=== PATIENT | female | born 1930 | race Hispanic/Latino ===

== ENCOUNTER 2018-10-24 19:36 | Inpatient (IN) | payer MEDICARE ==
--- NOTE | 2018-10-24 20:42 | CT ---
EXAM: CT brain without contrast HISTORY: Near syncope in [facility] [place] parking lot; altered mental status COMPARISON: None TECHNIQUE: Multiple contiguous axial images were obtained and a CT of the brain without contrast. FINDINGS: There are scattered hypodensities in the subcortical and periventricular white matter consi stent with small vessel ischemic disease. There is no evidence of hydrocephalus, intracranial hemorrhage, or extra-axial fluid collection. The calvarium and overlying soft tissues are unremarkable. There is opacification of the left maxilla ry sinus. The other visualized paranasal sinuses and mastoid air cells are well aerated. IMPRESSION: No evidence of acute intracranial abnormality
--- NOTE | 2018-10-24 20:56 | RAD ---
EXAM: Single view of the chest HISTORY: Altered mental status COMPARISON: None FINDINGS: Single view of the chest shows a normal sized cardiomediastinal silhouette. A pacemaker is seen with its leads in the right atrium and ventricle. Calcifications project over the heart shadow. There is no evidence of consolidation, mass, or pleural effusion. Degenerative changes are se en in the spine. IMPRESSION: No evidence of acute cardiopulmonary disease
[2018-10-24 21:07] LABS: #Eosinphils 0.1 thou/uL (0.0-0.7); #Lymphocytes 0.8 thou/uL (1.20-3.40); #Monocytes 0.4 thou/uL (0.11-0.59); #Neutrophils 5.2 thou/uL (1.40-6.50); %Basophils 0.1 % (0.0-1.0); %Eosinophils 0.8 % (0.0-10.0); %Monocytes 6.8 % (0.0-10.0); %Neutrophils 79.4 % (42.0-75.0); Hemoglobin 11.9 g/dL (12.0-16.0); Mean Corpuscular HGB CONC 34.6 g/dL (32.0-36.0); Mean Corpuscular Hemoglobin 30.3 pg (27.0-31.0); Mean Corpuscular Volume 87.6 fL (78.0-98.0); Mean Platelet Volume 10.2 fL (7.4-10.4); Platelet Count 193 thou/uL (130-400); RBC Distribution Width 12.5 % (11.5-14.5); Red Blood Cell (RBC) Count 3.93 mill/uL (4.20-5.40); White Blood Cell (WBC) Count 6.5 thou/uL (4.8-10.8)
[2018-10-24 21:37] LABS: ALT (SGPT) 10 U/L (8-55); AST (SGOT) 22 U/L (5-34); Acetaminophen Less than 6.0 mcg/mL (10.0-30.0); Albumin 4.3 g/dL (3.4-4.8); Alcohol Less than 10 mg/dL (Less than 10); Alkaline Phosphatase 63 U/L (40-150); Anion Gap 19 mmol/L (10-20); BUN (Urea Nitrogen) 32 mg/dL (9.8-20.1); Bilirubin, Total 0.5 mg/dL (0.2-1.2); Calc. Creatinine Clearance 0 mL/min (70-130); Calcium 10.5 mg/dL (7.8-10.44); Carbon Dioxide 22 mmol/L (23-31); Chloride 102 mmol/L (98-107); Estimated GFR-MDRD 26; Globulin 2.9 g/dL (2.4-3.5); Glucose 153 mg/dL (83-110); Potassium 4.4 mmol/L (3.5-5.1); Protein, Total 7.2 g/dL (6.0-8.3); Salicylate Less than 8.0 mg/dL (15.0-30.0); Sodium 139 mmol/L (136-145)
[2018-10-24 22:34] LABS: Bilirubin Small (Negative); Blood, Urine Small (Negative); Clarity TURBID (Clear); Glucose, Urine (Dipstick) Negative (Negative); Leukocyte Large (Negative); Nitrite Negative (Negative); Protein, Urine (Dipstick) 30 mg/dL (Neg-Trace)
[2018-10-24 22:36] LABS: Bacteria/HPF 4+ HPF (None Seen); Pathc Cast-AUWi Flag 2.72 (0-2.49); RBC/HPF 0-3 HPF (0-3); Squamous Epithelial None Seen HPF (0-3); Yeast-AUWi Flag 22.5 (0-25.0)
[2018-10-24 22:46] LABS: Amphetamine Not Detected (NotDetected); Cocaine Metabolite Screen Not Detected (NotDetected); Medtox Reader # READER 1; Methamphetamine Not Detected (NotDetected); Opiate Screen Not Detected (NotDetected); Phencyclidine (PCP) Not Detected (NotDetected); THC/Cannabinoid Screen Not Detected (NotDetected)
[2018-10-24 22:47] LABS: Barbiturates Screen Not Detected (NotDetected); Benzodiazepine Screen Not Detected (NotDetected); Medtox Control Line Valid? VALID (VALID); Methadone Not Detected (NotDetected); Oxycodone Screen Not Detected (NotDetected); Tricyclic Screen Not Detected (NotDetected)
[2018-10-25 01:24] LABS: Lactic Acid 2.5 mmol/L (0.5-2.2)
[2018-10-25] MEDS ORDERED: Sodium Chloride 0.9% 1,000 ML IV SCH ×2 (01:32→08:45)
[2018-10-25] MEDS ORDERED: Ondansetron ODT 4 MG TAB SL PRN (01:32)
[2018-10-25] MEDS ORDERED: Ondansetron PF 4 MG/2 ML Vial IVP PRN ×2 (01:32→08:43)
[2018-10-25] MEDS ORDERED: Acetaminophen 325 MG TAB PO PRN ×2 (01:32→08:43)
[2018-10-25 02:02] VITALS: BMI 23.1
[2018-10-25] MEDS ORDERED: Calcium Carbonate 500 MG ChewTAB PO PRN ×2 (08:43→09:20)
[2018-10-25] MEDS ORDERED: Bisacodyl 10 MG SUPP PR PRN (08:43)
[2018-10-25] MEDS ORDERED: Ondansetron ODT 4 MG TAB PO PRN (08:43)
[2018-10-25] MEDS ORDERED: hydrALAZINE 20 MG/ML VIAL SLOW IVP PRN (08:48)
[2018-10-25] MEDS ORDERED: cloNIDine 0.1 MG TAB PO PRN (08:48)
[2018-10-25] MEDS ORDERED: Labetalol HCl 100 MG/20 ML VIAL SLOW IVP PRN (08:48)
[2018-10-25] MEDS ORDERED: hydrALAZINE 10 MG TAB PO PRN (08:48)
--- NOTE | 2018-10-25 10:27 | ULT ---
US Renal Bilateral STANDARD: 10/25/2018 8:47 AM CLINICAL HISTORY: Acute kidney injury. STUDY: Renal ultrasound COMPARISON: None. FINDINGS: Right kidney: Echogenicity: Normal. Masses/cysts: 1.3 cm cyst Hydronephrosis: None. Calcifications: None. Length: 7.9 cm Left kidney: Echogenicity: Normal. Masses/cysts: 5.9 cm cyst Hydronephrosis: None. Calcifications: None. Length: 9.1 cm Limited visualization of the urinary bladder is unremarkable. IMPRESSION: Bilateral renal cysts
[2018-10-25] MEDS: cefTRIAXone\\ROCEPHIN 1 GM in Sodium Chloride 0.9% 100 ML IVPB SCH (11:46)
[2018-10-25] MEDS: Simvastatin 5 MG TAB PO SCH (11:47)
[2018-10-25] MEDS: Fluticasone Propionate Nasal Spray 16 gm Bottle NASAL SCH ×2 (11:47→20:49)
[2018-10-25] MEDS: Multivit, Therapeutic 1 TAB PO SCH (11:48)
[2018-10-25] MEDS: Cyanocobalamin (Vitamin B-12) 1,000 MCG TAB PO SCH (11:48)
[2018-10-25] MEDS: Hydroxychloroquine Sulfate 200 MG TAB PO SCH (11:48)
[2018-10-25] MEDS: Senokot S 8.6-50 MG TAB PO SCH ×2 (11:48→20:49)
[2018-10-25] MEDS: Folic Acid 1 MG TAB PO SCH (11:48)
[2018-10-25] MEDS: Sodium Chloride 0.9% 1,000 ML IV SCH ×2 (12:13→17:28)
--- NOTE | 2018-10-25 12:17 | HP ---
PRIMARY CARE: Blanca Roy MD PRIMARY FORKLIFT SUPERVISOR: Harsh Cameron MD CHIEF COMPLAINT: Generalized weakness. HISTORY OF PRESENT ILLNESS: The patient is an 88-year-old female with sick sinus syndrome, status post pacemaker, dementia, hypertension, diabetes mellitus type 2, and hyperlipidemia, presented to the emergency room with above complaints. The patient currently lives at home. Ambulates with the help of a walker. She has underlying dementia. She gets confused at times. She does not have any swallowing deficits. No bladder or bowel incontinence reported. She is able to walk to the bathroom. No recent hospitalization reported. The patient was at the [employer] with her son yesterday. When she came out of the car, she got lightheaded, dizzy, and slumped over. No injuries reported. No syncope reported according to the son. Recently, the patient has not been eating and drinking well. No fever or chills reported. There was no chest pain, shortness of breath, or diaphoresis reported. Not much information is available from the patient due to underlying dementia. In the emergency room, her initial vital signs showed temperature 98.7, respirations of 18, pulse of 78, blood pressure of 87/52. EKG showed paced rhythm. CT scan of the brain was negative for acute findings. Chest x-ray was negative for infiltrate. Lactic acid was 5.1. She received 2 L of IV fluids in the emergency room. Her blood pressure improved to 115/70 after IV fluid. PAST MEDICAL HISTORY: 1. Diabetes mellitus, type 2. 2. Sick sinus syndrome, status post pacemaker. 3. Hypertension. 4. Hyperlipidemia. 5. Degenerative joint disease. 6. Dementia. PAST SURGICAL HISTORY: 1. Bladder surgery. 2. Right hip replacement. 3. Left knee replacement. 4. Pacemaker placement. ALLERGIES: NO KNOWN DRUG ALLERGIES. CURRENT HOME MEDICATIONS: Confirmed with the family; 1. Metformin 500 mg b.i.d. 2. Pravastatin 20 mg daily. 3. Irbesartan/hydrochlorothiazide 300/12.5 daily. 4. Fluticasone nasal spray b.i.d. SOCIAL HISTORY: As discussed above, the son is the DPOA. She has good family support. FAMILY HISTORY: Negative for heart disease. REVIEW OF SYSTEMS: Cannot be reliably obtained from the patient due to current cognitive status. PHYSICAL EXAMINATION: VITAL SIGNS: As discussed above. GENERAL: An 88-year-old female, in no apparent distress. Appears comfortable. Feels better with IV hydration. HEENT: Head, atraumatic and normocephalic. Sclerae anicteric. Dry mucous membranes. No oral lesion. NECK: Supple. No JVD appreciated. No carotid bruit. LUNGS: Clear to auscultation bilaterally. No wheezing, rales, or rhonchi. HEART: S1 and S2 present. Regular rate and rhythm. 2/6 systolic murmur over the mitral area. ABDOMEN: Soft, nontender. Bowel sounds present. No rebound or guarding. No costovertebral angle tenderness. EXTREMITIES: No edema or calf tenderness. NEUROLOGY: Grossly nonfocal. Moves all 4 extremities. PSYCHIATRY: Alert, awake, and oriented x3. SKIN: Warm and dry. LYMPH NODE: No palpable lymph nodes in the neck. PERIPHERAL VASCULAR: Radial pulses palpable bilaterally. MUSCULOSKELETAL: No joint swelling or tenderness. LABORATORY FINDINGS: Creatinine 1.86 with BUN 32, potassium 4.4. WBC 6.5 with 79.4% neutrophils. Urinalysis showed greater than 50 wbc's with 4+ bacteria and hyaline cast. Chest x-ray and EKG by my review as discussed above. IMPRESSION: 1. Generalized weakness, multifactorial. 2. Toxic metabolic encephalopathy secondary to urinary tract infection. 3. Lactic acidosis. 4. Acute kidney injury baseline creatinine, unknown. 5. Chronic anemia. 6. Metabolic acidosis/lactic acidosis. 7. Diabetes mellitus, type 2. 8. Hypertension. 9. Hyperlipidemia. 10. Dementia. PLAN: The patient will be monitored on the medical floor. We will continue IV hydration. We will start her on IV ceftriaxone. Urine cultures have been sent. The family will assist with pacemaker interrogation. Recheck labs in a.m. Check orthostatic vitals. We will hold irbesartan/hydrochlorothiazide as well as metformin. Resume Flonase. Resume pravastatin. PT/OT consult. Home healthcare evaluation. Plan of care was discussed with the patient and the family at the bedside. They stated understanding. The patient will require 2 to 3 days for stabilization. Job ID: [id number]
[2018-10-25] MEDS: Enoxaparin Sodium 30 MG/0.3 ML SYRINGE SC SCH (20:49)
[2018-10-25] MEDS: Amlodipine 5 MG TAB PO SCH (20:49)
[2018-10-26 05:19] LABS: #Eosinphils 0.3 thou/uL (0.0-0.7); #Lymphocytes 1.6 thou/uL (1.20-3.40); #Monocytes 0.5 thou/uL (0.11-0.59); #Neutrophils 2.3 thou/uL (1.40-6.50); %Basophils 0.7 % (0.0-1.0); %Eosinophils 7.1 % (0.0-10.0); %Lymphocytes 33.3 % (21.0-51.0); %Monocytes 10.6 % (0.0-10.0); %Neutrophils 48.2 % (42.0-75.0); Hemoglobin 9.9 g/dL (12.0-16.0); Mean Corpuscular HGB CONC 33.6 g/dL (32.0-36.0); Mean Corpuscular Volume 89.2 fL (78.0-98.0); Platelet Count 161 thou/uL (130-400); RBC Distribution Width 12.6 % (11.5-14.5); Red Blood Cell (RBC) Count 3.31 mill/uL (4.20-5.40); White Blood Cell (WBC) Count 4.8 thou/uL (4.8-10.8)
[2018-10-26 05:41] LABS: ALT (SGPT) 7 U/L (8-55); AST (SGOT) 15 U/L (5-34); Albumin 3.4 g/dL (3.4-4.8); Alkaline Phosphatase 47 U/L (40-150); Anion Gap 10 mmol/L (10-20); BUN (Urea Nitrogen) 20 mg/dL (9.8-20.1); Bilirubin, Total 0.3 mg/dL (0.2-1.2); Calc. Creatinine Clearance 31 mL/min (70-130); Carbon Dioxide 24 mmol/L (23-31); Chloride 110 mmol/L (98-107); Estimated GFR-MDRD 48; Globulin 2.6 g/dL (2.4-3.5); Glucose 95 mg/dL (83-110); Phosphorus 2.8 mg/dL (2.3-4.7); Sodium 140 mmol/L (136-145)
[2018-10-26] MEDS: Amlodipine 5 MG TAB PO SCH ×2 (09:53→20:33)
[2018-10-26] MEDS: Multivit, Therapeutic 1 TAB PO SCH (09:55)
[2018-10-26] MEDS: Cyanocobalamin (Vitamin B-12) 1,000 MCG TAB PO SCH (09:56)
[2018-10-26] MEDS: Hydroxychloroquine Sulfate 200 MG TAB PO SCH (09:56)
[2018-10-26] MEDS: Senokot S 8.6-50 MG TAB PO SCH ×2 (09:56→20:34)
[2018-10-26] MEDS: Simvastatin 5 MG TAB PO SCH (09:57)
[2018-10-26] MEDS: cefTRIAXone\\ROCEPHIN 1 GM in Sodium Chloride 0.9% 100 ML IVPB SCH (09:57)
[2018-10-26] MEDS: Fluticasone Propionate Nasal Spray 16 gm Bottle NASAL SCH ×2 (10:01→20:31)
[2018-10-26] MEDS: Folic Acid 1 MG TAB PO SCH (10:11)
[2018-10-26] MEDS ORDERED: Sodium Chloride 0.9% 1,000 ML IV SCH (11:30)
[2018-10-26] MEDS: Enoxaparin Sodium 30 MG/0.3 ML SYRINGE SC SCH (20:31)
[2018-10-26 20:36] VITALS: BP 113/62
[2018-10-26 20:40] VITALS: TEMP 97.7
[2018-10-26] MEDS ORDERED: Cefdinir 300 MG CAP PO SCH (21:00)
--- NOTE | 2018-10-26 21:39 | PDOC.PN ---
- Subjective Encounter Start Date: 10/26/18 Encounter Start Time: 09:30 Patient seen and examined for Encephalopathy/UTI. Doing well. Sitting on chair. No fever. Tolerating PO well. No new complaints. No overnight events - Objective Resuscitation Status - Order Detail: 10/25/18 08:43 Resuscitation Status Routine Resuscitation Status: FULL: Full Resuscitation MAR Reviewed: Yes Vital Signs & Weight: Vital Signs (12 hours) Temp Pulse Resp BP BP Pulse Ox 10/26/18 20:33 60 113/62 10/26/18 20:00 97.7 F 60 16 113/62 98 10/26/18 09:53 60 115/62 Weight Admit Weight 118 lb 6.992 oz Weight 118 lb 6.992 oz Result Diagrams: 10/26/18 04:49 10/26/18 04:49 Additional Labs: Accuchecks 10/26/18 10/26/18 20:55 04:37 POC Glucose 215 H 90 Radiology Reviewed by me: Yes (CXR - no infiltrate, Renal USG - renal cyst) Phys Exam - Physical Examination Constitutional: NAD Respiratory: no wheezing, no rales, no rhonchi, clear to auscultation bilateral no accessory muscle use Cardiovascular: RRR, no rub no heaves/pulsations Gastrointestinal: soft, non-tender, positive bowel sounds Musculoskeletal: no edema, pulses present Neurological: non-focal, normal sensation, moves all 4 limbs Psychiatric: normal affect, A&O x 3 Skin: no rash Dx/Plan - Plan DVT proph w/SCDs IMPRESSION: 1. Generalized weakness, multifactorial. 2. Toxic metabolic encephalopathy secondary to E coli urinary tract infection. 3. Lactic acidosis. 4. Acute kidney injury. 5. Hypomagnesemia 6. Metabolic acidosis/lactic acidosis. 7. Diabetes mellitus, type 2. 8. Hypertension. 9. Hyperlipidemia. 10. Dementia. 11. Chronic anemia. 12. B/L renal cysts. PLAN: Cont IV Ceftriaxone Await cultures Replace Magnessium Bladder scan ok Cont sliding scale Cont Amlodipine Cont other meds as below Laboratory Tests 10/26/18 04:49 Magnesium 1.0 L Microbiology 10/24/18 22:16 Urine Straight Catheter Urine Culture - Preliminary Escherichia coli Review of Systems - Review of Systems Respiratory: negative: Cough, Dry, Shortness of Breath, Hemoptysis, SOB with Excertion, Pleuritic Pain, Sputum, Wheezing Cardiovascular: negative: chest pain, palpitations, orthopnea, paroxysmal nocturnal dyspnea, edema, light headedness, other Gastrointestinal: negative: Nausea, Vomiting, Abdominal Pain, Diarrhea, Constipation, Melena, Hematochezia, Other - Medications/Allergies Allergies/Adverse Reactions: Allergies Allergy/AdvReac Type Severity Reaction Status Date / Time No Known Allergies Allergy Verified 11/25/12 16:47 Medications: Current Medications Acetaminophen (Tylenol) 650 mg PO Q4H PRN PRN Reason: Headache/Fever/Mild Pain (1-3) Amlodipine Besylate (Norvasc) 2.5 mg PO BID [facility] Last Admin: 10/26/18 20:33 Dose: Not Given Bisacodyl (Dulcolax) 10 mg [place] DAILYPRN PRN PRN Reason: Constipation Calcium Carbonate (Tums) 1,000 mg PO Q4H PRN PRN Reason: Heartburn or Indigestion Cefdinir (Omnicef) 300 mg PO BID [facility] Last Admin: 10/26/18 20:33 Dose: 300 mg Clonidine (Catapres) 0.1 mg PO Q4H PRN PRN Reason: SBP Greater Than 180 Cyanocobalamin (Vitamin B-12) 1,000 mcg PO DAILY [facility] Last Admin: 10/26/18 09:56 Dose: 1,000 mcg Enoxaparin Sodium (Lovenox) 30 mg SC 2100 [facility] Last Admin: 10/26/18 20:31 Dose: 30 mg Fluticasone Propionate (Flonase Nasal [place]) 0 gm NASAL BID [facility] Last Admin: 10/26/18 20:31 Dose: 1 spr Folic Acid (Folvite) 1 mg PO DAILY [facility] Last Admin: 10/26/18 10:11 Dose: 1 mg Hydralazine HCl (Apresoline) 10 mg SLOW IVP Q4H PRN PRN Reason: SBP Greater Than 180 Hydralazine HCl (Apresoline) 10 mg PO Q6H PRN PRN Reason: SBP Greater Than 180 Hydroxychloroquine Sulfate (Plaquenil) 200 mg PO QAM [facility] Last Admin: 10/26/18 09:56 Dose: 200 mg Labetalol HCl (Normodyne) 10 mg SLOW IVP Q4H PRN PRN Reason: Systolic BP > 180 Multivitamins (Theragran) 1 tab PO DAILY [facility] Last Admin: 10/26/18 09:55 Dose: 1 tab Ondansetron HCl (Zofran Odt) 4 mg PO Q6H PRN PRN Reason: Nausea/Vomiting Ondansetron HCl (Zofran) 4 mg IVP Q6H PRN PRN Reason: Nausea/Vomiting Senna/Docusate Sodium (Senokot S) 1 tab PO BID [facility] Last Admin: 10/26/18 20:34 Dose: 1 tab Simvastatin (Zocor) 10 mg PO QAM [facility] Last Admin: 10/26/18 09:57 Dose: 10 mg Sodium Chloride (Flush - Normal Saline) 10 ml IVF PRN PRN PRN Reason: Saline Flush Last Admin: 10/25/18 02:08 Dose: 10 ml
[2018-10-27] MEDS ORDERED: Magnesium Sulfate 4 GM in Sodium Chloride 0.9% 250 ML 250 ML IVPB SCH (07:00)
[2018-10-27] MEDS ORDERED: Magnesium Chloride 64 MG TAB PO SCH (09:00)
[2018-10-27] MEDS: Amlodipine 5 MG TAB PO SCH (09:26)
[2018-10-27] MEDS: Multivit, Therapeutic 1 TAB PO SCH (09:26)
[2018-10-27] MEDS: Senokot S 8.6-50 MG TAB PO SCH (09:27)
[2018-10-27] MEDS: Folic Acid 1 MG TAB PO SCH (09:27)
[2018-10-27] MEDS: Fluticasone Propionate Nasal Spray 16 gm Bottle NASAL SCH (09:27)
[2018-10-27] MEDS: Hydroxychloroquine Sulfate 200 MG TAB PO SCH (09:27)
[2018-10-27] MEDS: Cyanocobalamin (Vitamin B-12) 1,000 MCG TAB PO SCH (09:27)
[2018-10-27] MEDS: Simvastatin 5 MG TAB PO SCH (09:39)
[2018-10-27] MEDS ORDERED: Cefdinir 300 MG CAP PO SCH ×2 (11:15→21:00)
[2018-10-27] MEDS ORDERED: cefTRIAXone\\ROCEPHIN 1 GM in Sodium Chloride 0.9% 100 ML IVPB SCH (12:00)
--- NOTE | 2018-10-27 14:22 | DIS ---
DATE OF ADMISSION: 10/25/2018 DATE OF DISCHARGE: 10/27/2018 DISCHARGE DISPOSITION: Home. FOLLOWUP: 1. Follow up with primary care physician, Dr. Blanca Roy, in 1 week. 2. Basic metabolic profile with magnesium and phosphorus is recommended. 3. Primary care physician advised to arrange and follow. The patient was seen and examined on the day of discharge. Denies any new complaints. No chest pain, shortness of breath, palpitations, fever, or chills reported. Mentation is back to baseline. DISCHARGE MEDICATIONS: 1. Omnicef 300 mg b.i.d. for next 3 to 4 days. 2. Vitamin B12 daily. 3. Folic acid daily. 4. Multivitamin daily. 5. Slow-Magnesium 128 mg twice a day. 6. Florastor 250 mg daily for next 3 weeks. 7. Pravastatin 20 mg q.a.m. 8. Metformin 500 mg b.i.d. 9. Flonase b.i.d. 10. Amlodipine 2.5 mg b.i.d. to be held if systolic blood pressure is below 130. BRIEF HOSPITAL COURSE: The patient is an 88-year-old female with sick-sinus syndrome, status post pacemaker, dementia, hypertension, and diabetes mellitus type 2, presented to the hospital with generalized weakness with altered mentation. Please refer to the history and physical for further details. The patient was admitted to the hospital with a diagnosis of encephalopathy secondary to UTI. Urine culture showed E coli. She was started on ceftriaxone, which has been changed to oral Omnicef. Her postvoid residual was within normal range. She denies any dysuria, hematuria, or urgency on the day of discharge. The patient was also found to have acute kidney injury with creatinine of 1.86 and BUN of 32. Lactic acid on admission was 5.1. For this reason, diuretics and angiotensin receptor blockers have been discontinued. She was started on low- dose amlodipine with good response in her blood pressure. At discharge, her blood pressure is 113/62. The family was advised to hold amlodipine if the blood pressure is below 120 to 130. She is currently on 2.5 mg twice a day. The patient also underwent renal ultrasound, that showed bilateral renal cysts without any hydronephrosis. All of the infectious workup came back negative. The patient was also found to have hypomagnesemia with magnesium of 1.0. Please note that due to lack of IV access, magnesium was replaced by mouth. On the day of discharge, magnesium improved to 1.2. The family agreed with continuation of oral magnesium and repeating labs after 1 week. It was very hard to get IV access in the patient. The patient and the family stated understanding. FINAL DIAGNOSES: 1. Generalized weakness, multifactorial. 2. Toxic metabolic encephalopathy/Sepsis secondary to urinary tract infection. 3. Lactic acidosis secondary to dehydration. 4. Acute kidney injury on chronic kidney disease stage 3. 5. Bilateral renal cysts. 6. Hypomagnesemia, started oral replacement. Not replaced intravenously due to lack of IV access. 7. Metabolic acidosis due to elevated lactate. 8. Diabetes mellitus type 2. Metformin will be resumed. 9. Hypertension. 10. Hyperlipidemia. 11. Dementia. 12. Chronic anemia. 13. Bilateral renal cysts. PLAN: Plan of care was discussed with the patient in detail and she stated understanding. TIME SPENT WITH PATIENT: Total time coordinating the discharge of this patient was 33 minutes. Job ID: [id number] [facility] SYSTEMSushil
--- NOTE | 2018-10-29 02:32 | PQF ---
[employer]airer Helper Crystal Reports Winform Viewer MANPREET DIAS MALIK MD [id number] [id number] CLINICAL DOCUMENTATION CLARIFICATION FORM: POST DISCHARGE Addendum to original discharge summary date: ____ Late entry note date: __ DATE: 10/29/2018 ATTN: Golden Barnhart Please exercise your independent, professional judgment in responding to the clarification form. Clinical indicators are provided on the bottom of this form for your review Can you please specify whether Sepsis is ruled in or ruled out during this encounter? Sepsis [ x] Ruled in diagnosis [ ] Continue to treat [x ] Resolved [ ] Ruled out diagnosis [ ] Cannot rule out diagnosis [ ] Other diagnosis please specify: [ ] Unable to determine In addition, please specify: Present on Admission (POA): [ ] Yes [ ] No [ ] Unable to determine For continuity of documentation, please document condition throughout progress notes and discharge summary. Thank You. CLINICAL INDICATORS ED Provider Report 10/25 pg. 3 "Sepsis urinary soucre" Microbiology 10/25 - "Urine culture: Escherichia coli" H and pg.1- "Lactic Acid 5.1" H and P pg.3 10/25- "Toxic metabolic encephalopathy secondary to urinary tract infection" H and P pg.3 10/25- "lactic acidosis" H and P pg.3 10/25-- "acute kidney injury base line creatinine, unknown" Discharge Summary 10/27 pg.1- "Presented to the hospital with generalized weakness with altered mentation" Discharge Summary 10/27 pg.1- "admitted to the hospital with a diagnosis of encephalopathy secondary to UTI. Urine culture showed E coli." Discharge Summary 10/27 pg.2- "Lactic acidosis secondary to dehydration" RISK FACTORS Urinary tract infection-Discharge Summary 10/27 pg.2 Lactic acidosis - Discharge Summary 10/27 pg.2 Dehydration-Discharge Summary 10/27 pg.2 Toxic metabolic encephalopathy-Discharge Summary 10/27 pg.2 Acute kidney injury-Discharge Summary 10/27 pg.2 TREATMENTS IV Fluids- JUL 17 Ceftriaxone (Rocephin) 1gm IV- JUL 17 Cefdinir (Omnicef) 300mg PO BID_ JUL 17 (This form is maintained as a part of the permanent medical record) 2014 [employer]. All Rights Reserved [email or web address] [not provided] MTDD
== END 2018-10-27 13:21 | disposition home or self-care (01) | DRG 871 ==
LOC: ERS 19:36 → T4-B 10-25 01:02
PROVIDERS: ADMIT Internal Medicine; ATTEND Internal Medicine
DX: A41.51 Sepsis due to Escherichia coli [E. coli] (principal); G92 Toxic encephalopathy; N39.0 Urinary tract infection, site not specified; N17.9 Acute kidney failure, unspecified; E87.2 Acidosis; N28.1 Cyst of kidney, acquired; E83.42 Hypomagnesemia; E86.0 Dehydration; N18.3 Chronic kidney disease, stage 3 (moderate); E11.22 Type 2 diabetes mellitus with diabetic chronic kidney disease; I12.9 Hypertensive chronic kidney disease with stage 1 through stage 4 chronic kidney disease, or unspecified chronic kidney disease; E78.5 Hyperlipidemia, unspecified; F03.90 Unspecified dementia, unspecified severity, without behavioral disturbance, psychotic disturbance, mood disturbance, and anxiety; Z96.652 Presence of left artificial knee joint; I49.5 Sick sinus syndrome; D63.1 Anemia in chronic kidney disease; Z79.84 Long term (current) use of oral hypoglycemic drugs; Z79.899 Other long term (current) drug therapy; Z95.0 Presence of cardiac pacemaker
CPT/HCPCS: 36415; 36416; 70450; 71045; 76770; 80053; 80306; 80307; 81003; 81015; 82550; 83605; 83735; 84100; 84484; 85025; 87077; 87086; 87186; 93005; 96360; 96361; A4353; J0696; J1650; J3475; J3490; J7050

== ENCOUNTER 2019-01-08 10:39 | Emergency (ER) | payer MEDICARE ==
[2019-01-08 11:17] LABS: #Eosinphils 0.3 thou/uL (0.0-0.7); #Lymphocytes 1.8 thou/uL (1.20-3.40); #Monocytes 0.6 thou/uL (0.11-0.59); #Neutrophils 5.5 thou/uL (1.40-6.50); %Basophils 0.6 % (0.0-1.0); %Eosinophils 3.2 % (0.0-10.0); %Lymphocytes 21.7 % (21.0-51.0); %Monocytes 7.3 % (0.0-10.0); %Neutrophils 67.2 % (42.0-75.0); Hemoglobin 11.6 g/dL (12.0-16.0); Mean Corpuscular HGB CONC 33.5 g/dL (32.0-36.0); Mean Corpuscular Volume 89.5 fL (78.0-98.0); Mean Platelet Volume 9.8 fL (7.4-10.4); Platelet Count 186 thou/uL (130-400); RBC Distribution Width 12.7 % (11.5-14.5); Red Blood Cell (RBC) Count 3.85 mill/uL (4.20-5.40); White Blood Cell (WBC) Count 8.2 thou/uL (4.8-10.8)
[2019-01-08 11:26] LABS: Bacteria/HPF 4+ HPF (None Seen); Bilirubin Negative (Negative); Blood, Urine Negative (Negative); Clarity Clear (Clear); Glucose, Urine (Dipstick) Normal (Negative); Leukocyte Negative Leu/uL (Negative); Nitrite 2+ (Negative); Protein, Urine (Dipstick) Negative (Neg-Trace); RBC/HPF 0-3 HPF (0-3); Squamous Epithelial 0-3 HPF (0-3); Urobilinogen Normal mg/dL (Less than 2); WBC/HPF 0-3 HPF (0-3)
[2019-01-08 11:41] LABS: ALT (SGPT) 7 U/L (8-55); AST (SGOT) 22 U/L (5-34); Albumin 4.2 g/dL (3.4-4.8); Alkaline Phosphatase 60 U/L (40-150); Anion Gap 17 mmol/L (10-20); BUN (Urea Nitrogen) 15 mg/dL (9.8-20.1); Bilirubin, Total 0.4 mg/dL (0.2-1.2); Calc. Creatinine Clearance 0 mL/min (70-130); Calcium 9.9 mg/dL (7.8-10.44); Carbon Dioxide 20 mmol/L (23-31); Chloride 106 mmol/L (98-107); Estimated GFR-MDRD 53; Globulin 3.3 g/dL (2.4-3.5); Glucose 89 mg/dL (83-110); Lipase 21 U/L (8-78); Potassium 4.5 mmol/L (3.5-5.1); Protein, Total 7.5 g/dL (6.0-8.3); Sodium 138 mmol/L (136-145)
--- NOTE | 2019-01-08 11:59 | CT ---
CT HEAD WITHOUT CONTRAST: INDICATION: Mental status change. COMPARISON: 10/24/2018. FINDINGS: Cortical atrophy is again noted. Moderate chronic ischemic white matter changes again noted. No catherine dence of mass or hemorrhage. No evidence of acute infarct. No interval change noted. IMPRESSION: Chronic changes as described. No acute interval change. POS: HARRIS
[2019-01-08] MEDS ORDERED: cefTRIAXone\\ROCEPHIN 1 GM VIAL ONE (12:21)
== END 2019-01-08 12:53 | disposition home or self-care (01) ==
LOC: ERS 10:39
DX: S20.229A Contusion of unspecified back wall of thorax, initial encounter (principal); F03.90 Unspecified dementia, unspecified severity, without behavioral disturbance, psychotic disturbance, mood disturbance, and anxiety; N39.0 Urinary tract infection, site not specified; I10 Essential (primary) hypertension; E11.9 Type 2 diabetes mellitus without complications; Z79.84 Long term (current) use of oral hypoglycemic drugs; Z79.899 Other long term (current) drug therapy; W19.XXXA Unspecified fall, initial encounter
CPT/HCPCS: 70450; 80053; 81003; 81015; 83690; 85025; 94760; 96374; J0696

== ENCOUNTER 2019-07-19 12:54 | Emergency (ER) | payer MEDICARE ==
--- NOTE | 2019-07-19 13:59 | CT ---
Exam: CT brain PROVIDED CLINICAL HISTORY: Head injury COMPARISON: 01/08/2019 FINDINGS: The ventricular system is normal in size and morphology. No evidence for intracranial hemorrhage or mass effect. The extracranial soft tissues and osseous structures demonstrate no evidence for an acute abnormality. Persistent opacification of the left maxillary sinus with material of increased de nsity suggesting inspissated secretions. Chronic microvascular ischemic changes are redemonstrated. IMPRESSION: No evidence for intracranial hemorrhage or mass effect.
--- NOTE | 2019-07-19 14:14 | RAD ---
EXAM: XR Pelvis AP STANDARD PROVIDED CLINICAL HISTORY: Pain FINDINGS: There is no evidence for fracture or other acute osseous abnormality. Alignment appears anatomic. Pos toperative changes of right total hip arthroplasty are partially visualized. Left hip joint space appears preserved. IMPRESSION: No evidence for an acute osseous abnormality. If there is persistent clinical concern, conservative m anagement and follow-up imaging advised.
--- NOTE | 2019-07-19 14:15 | RAD ---
EXAM: XR Hip Rt 2-3 View PROVIDED CLINICAL HISTORY: Pain FINDINGS: There is no evidence for fracture or other acute osseous abnormality. Alignment appears anatomic. Pos toperative changes of right total hip arthroplasty are demonstrated, without evidence for hardware loosening or migration. Heterotopic ossification is seen about the right hip. IMPRESSION: No evidence for an acute osseous abnormality. If there is persistent clinical concern, conservative m anagement and follow-up imaging advised.
[2019-07-19] MEDS ORDERED: Lidocaine 1% w/Epinephrine 1:100K 20 ML VIAL ONE (14:39)
== END 2019-07-19 15:17 | disposition home or self-care (01) ==
LOC: ERS 12:54
DX: S01.01XA Laceration without foreign body of scalp, initial encounter (principal); M25.551 Pain in right hip; E11.9 Type 2 diabetes mellitus without complications; I10 Essential (primary) hypertension; Z79.899 Other long term (current) drug therapy; F03.90 Unspecified dementia, unspecified severity, without behavioral disturbance, psychotic disturbance, mood disturbance, and anxiety; W01.198A Fall on same level from slipping, tripping and stumbling with subsequent striking against other object, initial encounter; Y92.009 Unspecified place in unspecified non-institutional (private) residence as the place of occurrence of the external cause
CPT/HCPCS: 12001; 70450; 72170

== ENCOUNTER 2019-11-25 14:41 | Observation (INO) | payer MEDICARE, OTHER ==
--- NOTE | 2019-11-25 15:24 | RAD ---
RADIOGRAPH CHEST 1 VIEW: DATE: 11/25/2019 HISTORY: 89-year-old female with generalized weakness and altered mental status. Concern for aspiration. FINDINGS: There are no airspace densities, pulmonary edema, pneumothorax, or cardiomegaly. The lateral costophr enic angles are sharp. Transvenous dual-lead permanent pacemaker with generator on left side. No interval change since 10/24/2018. IMPRESSION: No acute cardiopulmonary findings.
--- NOTE | 2019-11-25 15:30 | CT ---
Exam: Head CT without contrast HISTORY: Altered mental status, starting yesterday. Weakness. COMPARISON: 07/29/2019 FINDINGS: Hemorrhage: No intraparenchymal hemorrhage or extra-axial hematoma. Brain parenchyma: Cortical alvarez-white matter differentiation is preserved. No mass effect or midline shift. Basilar cisterns are patent.Stable white matter hypodensities of chronic small vessel ischemic change Ventricular system: Ventricles and sulci are patent and symmetric. Calvarium: Intact. Sinuses and mastoid air cells: Chronic left maxillary sinus disease with inspissated mucus/secretions . Correlate for possible fungal infection. IMPRESSION: No acute intracranial process.
[2019-11-25 15:34] LABS: Hemoglobin 12.1 g/dL (12.0-16.0); Mean Corpuscular HGB CONC 33.7 g/dL (32.0-36.0); Mean Corpuscular Hemoglobin 29.6 pg (27.0-31.0); Mean Corpuscular Volume 87.7 fL (78.0-98.0); Platelet Count 137 thou/uL (130-400); Red Blood Cell (RBC) Count 4.09 mill/uL (4.20-5.40); White Blood Cell (WBC) Count 3.6 thou/uL (4.8-10.8)
[2019-11-25] MEDS ORDERED: Cefepime 2 GM VIAL ONE (15:41)
[2019-11-25] MEDS ORDERED: Vancomycin 1 GM/200 ML BAG ONE (15:41)
[2019-11-25 15:48] LABS: ALT (SGPT) 14 U/L (8-55); AST (SGOT) 33 U/L (5-34); Albumin 3.9 g/dL (3.4-4.8); Alkaline Phosphatase 62 U/L (40-110); Anion Gap 15 mmol/L (10-20); BUN (Urea Nitrogen) 34 mg/dL (9.8-20.1); Bilirubin, Total 0.3 mg/dL (0.2-1.2); Calc. Creatinine Clearance 0 mL/min (70-130); Calcium 9.7 mg/dL (7.8-10.44); Carbon Dioxide 23 mmol/L (23-31); Chloride 102 mmol/L (98-107); Estimated GFR-MDRD 43; Globulin 3.8 g/dL (2.4-3.5); Glucose 105 mg/dL (83-110); Protein, Total 7.7 g/dL (6.0-8.3); Sodium 136 mmol/L (136-145)
[2019-11-25 15:49] LABS: Band 8 % (5-11); Lymphocytes 42 % (21-51); MDiff Complete? YES; Monocytes 17 % (0-10); Neutrophil 33 % (42-75); Platelet Morphology Comment Appears Adequate; RBC Morphology Normal
[2019-11-25 16:13] LABS: CKMB 3.4 ng/mL (0-6.6)
[2019-11-25 16:39] LABS: Bacteria/HPF 1+ HPF (None Seen); Bilirubin Negative (Negative); Blood, Urine Negative (Negative); Clarity Clear (Clear); Glucose, Urine (Dipstick) Normal (Negative); Ketone, Urine Negative (Negative); Leukocyte 25 Leu/uL (Negative); Nitrite Negative (Negative); Protein, Urine (Dipstick) 10 mg/dL (Neg-Trace); RBC/HPF 0-3 HPF (0-3); Specific Gravity, Urine 1.011 (1.002-1.036); Squamous Epithelial None Seen HPF (0-3); Urobilinogen Normal mg/dL (Less than 2)
[2019-11-25 18:57] LABS: Troponin I 0.068 ng/mL (< 0.028)
[2019-11-25 19:20] VITALS: BMI 22.6
[2019-11-25 21:09] LABS: Troponin I 0.053 ng/mL (< 0.028)
[2019-11-25] MEDS ORDERED: Dextrose 50% Abboject 50 ML SYRINGE SLOW IVP PRN (21:23)
[2019-11-25] MEDS ORDERED: Dextrose 5% in Water 1,000 ML IV PRN (21:23)
[2019-11-25] MEDS ORDERED: HumaLOG 300 UNITS/3 ML VIAL SC PRN ×2 (21:23)
--- NOTE | 2019-11-25 22:30 | HP ---
PRIMARY CARE PHYSICIAN: Dr. Roy. CHIEF COMPLAINT: Altered mental status. HISTORY OF PRESENT ILLNESS: The patient is an 89-year-old female with past medical history significant for dementia, diabetes, and hypertension. She presents to the ER today with her son for change and decrease in her mental status from her normal baseline. She normally does have some confusion for her baseline, but the son stated that she had been a little bit more tired and less energetic than usual. He stated the last time that this happened, she had a UTI. No recorded fever. The patient denies any chest pain, shortness of breath, nausea, vomiting, or abdominal pain. No recent falls or trauma. Today in the ER, they completed lab work, urinalysis, a brain CT, and a chest x-ray. PAST MEDICAL HISTORY: Includes dementia, diabetes, hypertension. PAST SURGICAL HISTORY: Pacemaker, right hip replacement, left knee replacement, and bladder suspension. ALLERGIES: NO KNOWN ALLERGIES. MEDICATIONS: The patient unable to obtain due to altered mental status. SOCIAL HISTORY: The patient lives at home with family. Denies any alcohol, drug or smoking history. FAMILY HISTORY: The patient unable to recall any significant history. REVIEW OF SYSTEMS: All other review of systems are negative unless noted in the HPI. PHYSICAL EXAMINATION: VITAL SIGNS: Temperature 97.9, pulse 71, respiratory rate 18, O2 saturation 96% on room air, blood pressure 139/78. GENERAL: Afebrile. Appears nontoxic, appears pain free. Oriented to person, but not place. Oriented to the month, but not the year. HEENT: Head, normocephalic, atraumatic. EYES: Extraocular muscles intact. PERRLA. NECK: Normal range of motion. Trachea midline. RESPIRATORY: Breath sounds clear to auscultation bilaterally. Normal chest rise. No wheezing. No rales, no rhonchi. CARDIOVASCULAR: Regular rate and rhythm. No murmurs, no rubs, no gallops. ABDOMEN: Nontender. No distention. No guarding. EXTREMITIES: Pedal pulses normal. No cyanosis, no clubbing, no edema. NEUROLOGIC: The patient oriented to person. SKIN: Warm, dry, and intact PSYCHIATRIC: Normal affect and at baseline for herself per her son. LABORATORY DATA: White blood cells 3.6, RBCs 4.09, hematocrit 35.9. Sodium 136, potassium 4.0, anion gap 15, BUN 34, creatinine 1.18, GFR 43, glucose 105. Lactic acid 1.2. Series of troponins; first one 0.077, second one is 0.068, third one is 0.053. Urinalysis showed light yellow urine, clear clarity, 6.0 pH, leukocyte esterase 25, white blood cells 11-20, 1+ bacteria. Brain CT showed no acute intracranial process. EKG showed paced rhythm 70 beats per minute. Chest x-ray showed no acute cardiopulmonary findings. IMPRESSION AND PLAN: Altered mental status secondary to urinary tract infection. We will continue the patient on IV antibiotics. Also she was found to have acute kidney injury. We will start gentle IV hydration for her and see how she is able to tolerate. Hopefully, her altered mental status will be fully back to baseline once this infectious process is cleared up. She did have some elevated troponins. We will continue to monitor her throughout the evening on telemetry. No chest pain has been reported at this time. No shortness of breath. GI and DVT prophylaxis have been ordered with VTE on Pepcid. The patient's son is the surrogate decision maker. Job ID: [id number]
[2019-11-26] MEDS: Sodium Chloride 0.9% 1,000 ML IV SCH ×2 (00:42→16:32)
[2019-11-26 04:43] LABS: #Eosinphils 0.1 thou/uL (0.0-0.7); #Lymphocytes 1.5 thou/uL (1.20-3.40); #Monocytes 0.5 thou/uL (0.11-0.59); #Neutrophils 1.6 thou/uL (1.40-6.50); %Basophils 0.5 % (0.0-1.0); %Eosinophils 2.5 % (0.0-10.0); %Lymphocytes 40.3 % (21.0-51.0); %Monocytes 13.4 % (0.0-10.0); %Neutrophils 43.3 % (42.0-75.0); Hemoglobin 10.6 g/dL (12.0-16.0); Mean Corpuscular HGB CONC 31.8 g/dL (32.0-36.0); Mean Corpuscular Hemoglobin 27.9 pg (27.0-31.0); Mean Corpuscular Volume 87.7 fL (78.0-98.0); Mean Platelet Volume 9.6 fL (7.4-10.4); Platelet Count 132 thou/uL (130-400); RBC Distribution Width 13.8 % (11.5-14.5); Red Blood Cell (RBC) Count 3.79 mill/uL (4.20-5.40); White Blood Cell (WBC) Count 3.7 thou/uL (4.8-10.8)
[2019-11-26 04:59] LABS: Anion Gap 11 mmol/L (10-20); BUN (Urea Nitrogen) 28 mg/dL (9.8-20.1); Calc. Creatinine Clearance 31 mL/min (70-130); Carbon Dioxide 24 mmol/L (23-31); Chloride 105 mmol/L (98-107); Estimated GFR-MDRD 48; Glucose 85 mg/dL (83-110); Potassium 3.9 mmol/L (3.5-5.1); Sodium 136 mmol/L (136-145)
[2019-11-26] MEDS ORDERED: Prevnar 13-Val Conj/PF 0.5 ML SYRINGE IM ONE (09:00)
[2019-11-26] MEDS: cefTRIAXone\\ROCEPHIN 1 GM in Sodium Chloride 0.9% 100 ML IVPB SCH (10:14)
--- NOTE | 2019-11-26 13:52 | PDOC.HOSPP ---
- Subjective Encounter Date: 11/26/19 Subjective: Pleasantly confused. - Objective Vital Signs & Weight: Vital Signs (12 hours) Temp Pulse Resp BP Pulse Ox 11/26/19 11:36 97.9 F 76 18 155/79 H 92 L 11/26/19 07:32 98.7 F 79 16 155/82 H 97 11/26/19 04:17 98.3 F 74 20 117/78 94 L Weight Admit Weight 116 lb 1.6 oz Weight 116 lb 1.6 oz I&O: 11/25/19 11/26/19 11/27/19 06:59 06:59 06:59 Intake Total 300 Output Total 600 Balance -300 Result Diagrams: 11/26/19 04:10 11/26/19 04:10 Hospitalist ROS - Medication Medications: Active Medications Generic Name Dose Route Start Last Admin Trade Name Freq PRN Reason Stop Dose Admin Sodium Chloride 1,000 mls @ 50 mls/hr 11/25/19 21:30 11/26/19 00:42 Normal Saline 0.9% IV 1,000 mls .Q20H VIRIDIANA Administration Ceftriaxone Sodium 1 gm/ 100 mls @ 200 mls/hr 11/26/19 10:00 11/26/19 10:14 Sodium Chloride IVPB 100 mls Q24HR VIRIDIANA Administration Insulin Human Lispro 0 units 11/25/19 21:23 11/26/19 11:30 Humalog SC 2 unit .MILD SLIDING SCALE PRN Administration Mild Correctional Scale - Exam General Appearance: awake alert ENT: normocephalic atraumatic Neck: supple Respiratory: normal chest expansion, no tachypnea Gastrointestinal: soft Neurological: cranial nerve grossly intact, no focal deficits Hosp A/P (1) Metabolic encephalopathy Code(s): G93.41 - METABOLIC ENCEPHALOPATHY Status: Acute (2) Dementia Code(s): F03.90 - UNSPECIFIED DEMENTIA WITHOUT BEHAVIORAL DISTURBANCE Status: Acute (3) UTI (urinary tract infection) Status: Acute - Plan Change antibiotics to Ceftriaxone. PT and OT evaluation.
[2019-11-26] MEDS ORDERED: Cefepime 1 GM in Sodium Chloride 0.9% 100 ML IVPB SCH (16:00)
[2019-11-26 16:46] LABS: Vancomycin, Random 8.1 ug/mL (See Comment)
[2019-11-26] MEDS ORDERED: Vancomycin 1 GM in Premix Bag 1 BAG IVPB SCH (17:00)
[2019-11-26] MEDS ORDERED: Vancomycin 1.5 GRAM/300 ML BAG 1.5 GM in Premix Bag 1 BAG IVPB SCH (18:00)
[2019-11-26] MEDS ORDERED: Amlodipine 10 MG TAB PO SCH (18:15)
[2019-11-26] MEDS ORDERED: Acetaminophen 325 MG TAB PO PRN (22:10)
[2019-11-27 05:28] LABS: #Eosinphils 0.1 thou/uL (0.0-0.7); #Lymphocytes 0.9 thou/uL (1.20-3.40); #Monocytes 0.3 thou/uL (0.11-0.59); #Neutrophils 2.1 thou/uL (1.40-6.50); %Basophils 0.4 % (0.0-1.0); %Eosinophils 3.7 % (0.0-10.0); %Lymphocytes 26.2 % (21.0-51.0); %Monocytes 9.5 % (0.0-10.0); %Neutrophils 60.2 % (42.0-75.0); Hemoglobin 10.8 g/dL (12.0-16.0); Mean Corpuscular HGB CONC 32.9 g/dL (32.0-36.0); Mean Corpuscular Hemoglobin 28.7 pg (27.0-31.0); Mean Corpuscular Volume 87.1 fL (78.0-98.0); Mean Platelet Volume 9.5 fL (7.4-10.4); Platelet Count 120 thou/uL (130-400); RBC Distribution Width 13.6 % (11.5-14.5); Red Blood Cell (RBC) Count 3.77 mill/uL (4.20-5.40); White Blood Cell (WBC) Count 3.4 thou/uL (4.8-10.8)
[2019-11-27 05:50] LABS: Anion Gap 12 mmol/L (10-20); BUN (Urea Nitrogen) 19 mg/dL (9.8-20.1); Calc. Creatinine Clearance 38 mL/min (70-130); Calcium 8.8 mg/dL (7.8-10.44); Carbon Dioxide 22 mmol/L (23-31); Chloride 105 mmol/L (98-107); Estimated GFR-MDRD 62; Glucose 90 mg/dL (83-110); Potassium 3.6 mmol/L (3.5-5.1); Sodium 135 mmol/L (136-145)
[2019-11-27] MEDS ORDERED: Amlodipine 10 MG TAB PO SCH (09:00)
[2019-11-27] MEDS: cefTRIAXone\\ROCEPHIN 1 GM in Sodium Chloride 0.9% 100 ML IVPB SCH (09:51)
[2019-11-27 13:47] LABS: SARS-CoV-2 MS2 Positive; SARS-CoV-2 N Gene Positive; SARS-CoV-2 S Gene Positive; SARS-CoV-2 by NAA DETECTED (NotDetected); SARS-CoV-2 orf1ab Positive
[2019-11-27 15:15] VITALS: BP 136/71; TEMP 98.8
[2019-11-27] MEDS: Sodium Chloride 0.9% 1,000 ML IV SCH (15:26)
--- NOTE | 2019-11-28 01:29 | DIS ---
DATE OF ADMISSION: 11/25/2019 DATE OF DISCHARGE: 11/27/2019 DISCHARGE DIAGNOSES: 1. Altered mental status due to metabolic encephalopathy. 2. Urinary tract infection due to alpha hemolytic streptococci. 3. History of dementia. DISCHARGE MEDICATIONS: 1. Amlodipine 10 mg orally daily. 2. Keflex 500 mg orally twice daily for 5 days. 3. Aspirin 81 mg orally daily. 4. Carvedilol 3.125 mg orally twice daily. 5. Fluticasone nasal spray twice daily as needed for allergies. 6. Mirtazapine 50 mg orally nightly. 7. Pravastatin 20 mg orally daily. HISTORY OF PRESENT ILLNESS AND HOSPITAL COURSE: The patient is an 89-year-old female with past medical history of dementia, diabetes, and hypertension, who was brought to the hospital with worsening mental status. Initial workup in the ER revealed presence of UTI. The patient was placed in observation and was started on IV antibiotics. Her urine culture revealed growth of alpha hemolytic streptococci. Her mental status returned to baseline with antibiotic management. She will be discharged on 5 days of Keflex. Job ID: [id number]
== END 2019-11-27 18:52 | disposition home health service (06) ==
LOC: ERS 14:41 → 2SE 17:15
PROVIDERS: ADMIT Internal Medicine; ATTEND Internal Medicine
DX: N39.0 Urinary tract infection, site not specified (principal); B95.0 Streptococcus, group A, as the cause of diseases classified elsewhere; G93.41 Metabolic encephalopathy; N17.9 Acute kidney failure, unspecified; F03.90 Unspecified dementia, unspecified severity, without behavioral disturbance, psychotic disturbance, mood disturbance, and anxiety; E11.9 Type 2 diabetes mellitus without complications; I10 Essential (primary) hypertension; U07.1 COVID-19; Z79.82 Long term (current) use of aspirin; Z79.899 Other long term (current) drug therapy; Z95.0 Presence of cardiac pacemaker; Z23 Encounter for immunization
CPT/HCPCS: 51701; 70450; 71045; 80048 ×2; 80053; 80202; 82553; 82962 ×2; 83605; 84484 ×2; 85025 ×3; 87040; 87077; 87086; 90670; 93005; 96361; 96365; 96367; 96375; 96376; 97139 ×2; 97530; 99285; G0009; G0378 ×4; U0003; 36415; 36416; 81003; 81015; 87635; 90471; J0692; J0696; J3370; J3490